=== PATIENT | female | born 1980 | race African-American/Black ===

== ENCOUNTER 2017-07-16 00:41 | Emergency (ER) | payer SELFPAY ==
[~2017-07-16 00:41] MED LIST: IBUP-1060 PO; LIDO20SO PO; NITR100C62 PO; PRED50TA PO; PROAIR HFA8.5 GM INH
[2017-07-16 00:58] VITALS: BP 217/105
[2017-07-16] MEDS ORDERED: NAPR-683 PO (01:02)
--- NOTE | 2017-07-16 01:03 | PHYS DOC ---
Past Medical History Past Medical History: Asthma, Hypertension Additional Past Medical Histor: svt Past Surgical History: Tonsillectomy, Tubal ligation, Other Additional Past Surgical Histo: Cardiac ablation 2001, CARDIAC CARDIOVERSION Alcohol Use: None Drug Use: None Adult General Chief Complaint Chief Complaint: WRIST PAIN HPI HPI Patient is a 37 year old female who presents with left wrist pain. She is temporarily working at [employer] for [employer] and noticed increased pain and swelling of her left wrist and base of her thumb from all the sorting. No fall or blunt injury. No fever. No redness or lesions. Review of Systems Review of Systems Constitutional: Denies fever or chills Musculoskeletal: POS joint pain Integument: Denies rash or skin lesions Neurologic: Denies headache, focal weakness or sensory changes All other systems were reviewed and found to be within normal limits, except as documented in this note. Allergies Allergies Allergies Coded Allergies Type Severity Reaction Last Updated Verified No Known Drug Allergies 09/06/15 No Physical Exam Physical Exam Constitutional: Well developed, well nourished, no acute distress, non-toxic appearance. Skin: Warm, dry, no erythema, no rash. Extremities: Left wrist: Slight swelling to hypothenar area and dorsum of left wrist at radial aspect. NVI distally. Painful extension of thumb. No redness; no warmth. Neurologic: Alert and oriented X 3, normal motor function, normal sensory function, no focal deficits noted. Course & Med Decision Making Course & Med Decision Making Patient has over use syndrome. Given referral to Ortho and cock up splint. Rx: Naprosyn. Note for light duty. She has hypertension BUT DIDN'T TAKE HER MEDS TODAY. She was instructed to take her blood pressure meds when she gets home. She is asymptomatic. I have spoken with the patient and/or caregivers. I have explained the patient' s condition, diagnosis and treatment plan based on the information available to me at this time. I have answered the patient's and/or caregiver's questions and addressed any concerns. The patient and/or caregivers have as good an understanding of the patient's diagnosis, condition and treatment plan as can be expected at this point. The patient's condition is stable and appropriate for discharge from the emergency department. The patient will pursue further outpatient evaluation with the primary care physician or other designated or consulting physician as outlined in the discharge instructions. The patient and/or caregivers are agreeable to this plan of care and follow-up instructions have been explained in detail. The patient and/or caregivers have received these instructions in written format and have expressed an understanding of the discharge instructions. The patient and/or caregivers are aware that any significant change in condition or worsening of symptoms should prompt an immediate return to this or the closest emergency department or a call to 911. [place] Disclaimer Dragon Disclaimer This electronic medical record was generated, in whole or in part, using a voice recognition dictation system. Departure Departure Impression: Primary Impression: Left wrist tendinitis Disposition: HOME, SELF-CARE Condition: STABLE Referrals: UNKNOWN PCP NAME (PCP) Patient Instructions: Wrist Sprain with [facility] Script[facility] Naproxen (NAPROSYN) 500 Mg Tablet 1 TAB PO BID, #30 TAB 1 Refill Prov: AILYN ALVARADO MD 07/16/17 AILYN ALVARADO MD Jul 16, 2017 01:03
== END 2017-07-16 01:11 | disposition home or self-care (01) ==
LOC: ER 00:41
DX: M77.9 Enthesopathy, unspecified (principal); J45.909 Unspecified asthma, uncomplicated; I10 Essential (primary) hypertension
CPT/HCPCS: 99282

== ENCOUNTER 2017-08-26 17:10 | Emergency (ER) | payer SELFPAY | END 2017-08-26 17:36 | disposition home or self-care (01) | LOC: ER 17:10 | DX: H65.192 Other acute nonsuppurative otitis media, left ear (principal); I10 Essential (primary) hypertension; J45.909 Unspecified asthma, uncomplicated; I47.1 Supraventricular tachycardia | CPT/HCPCS: 99283 ==

== ENCOUNTER 2018-02-11 01:58 | Inpatient (IN) | payer OTHER ==
[2018-02-11] MEDS: LABETALOL 20 MG/4 ML DISP.SYRIN. IVP (02:22)
[2018-02-11 02:56] LABS: ADD MAN DIFF? NO
[2018-02-11 02:58] LABS: BASO # 0.1 x10^3/uL (0.0-0.2); BASO % 1 % (0-3); EOS # 0.2 x10^3/uL (0.0-0.7); EOS % 2 % (0-3); HEMOGLOBIN 9.3 g/dL (12.0-15.5); LYMPH # 2.6 x10^3/uL (1.0-4.8); LYMPH % 27 % (24-48); MEAN CORPUSCULAR HEMOGLOBIN 17 pg (25-35); MEAN CORPUSCULAR HGB CONC 31 g/dL (31-37); MEAN CORPUSCULAR VOLUME 56 fL (79-100); MONO # 0.5 x10^3/uL (0.0-1.1); MONO % 5 % (0-9); NEUT # 6.3 x10^3uL (1.8-7.7); NEUT % 65 % (31-73); PLATELET COUNT 364 x10^3/uL (140-400); RED BLOOD COUNT 5.41 x10^6/uL (3.50-5.40); RED CELL DISTRIBUTION WIDTH 21.1 % (11.5-14.5); WHITE BLOOD COUNT 9.7 x10^3/uL (4.0-11.0)
[2018-02-11 03:19] LABS: NEG OBC SER NEG; POS OBC SER POS; PREG TEST PT QUAL NEGATIVE (NEG)
[2018-02-11 03:21] LABS: ANION GAP 12 (6-14); BLOOD UREA NITROGEN 10 mg/dL (7-20); BUN/CREATININE RATIO 7 (6-20); CALCIUM 9.5 mg/dL (8.5-10.1); CARBON DIOXIDE 27 mmol/L (21-32); CHLORIDE 101 mmol/L (98-107); CREATININE 1.4 mg/dL (0.6-1.0); GFR 51.2; GLUCOSE 137 mg/dL (70-99); POTASSIUM 3.6 mmol/L (3.5-5.1); SODIUM 140 mmol/L (136-145)
[2018-02-11 03:27] LABS: ALBUMIN 3.7 g/dL (3.4-5.0); ALBUMIN/GLOBULIN RATIO 0.8 (1.0-1.7); ALK PHOS 101 U/L (46-116); ALT (SGPT) 24 U/L (14-59); AST (SGOT) 21 U/L (15-37); TOTAL BILIRUBIN 0.2 mg/dL (0.2-1.0); TOTAL PROTEIN 8.2 g/dL (6.4-8.2)
[2018-02-11 03:31] LABS: D-DIMER 0.29 ug/mlFEU (0.00-0.50)
[2018-02-11 03:34] LABS: THYROID STIM HORMONE (TSH) 1.384 uIU/mL (0.358-3.74)
[2018-02-11 03:35] LABS: TROPONINI 0.071 ng/mL (0.000-0.055)
[2018-02-11] MEDS ORDERED: fentaNYL PF VIAL 100 MCG/2 ML VIAL IV (03:45)
[2018-02-11] MEDS ORDERED: ONDANSETRON PF 4 MG/2 ML VIAL. IV ×2 (03:45→09:15)
[2018-02-11] MEDS ORDERED: SODIUM CHLORIDE 0.9% IV (04:00)
[2018-02-11] MEDS: fentaNYL PF VIAL 100 MCG/2 ML VIAL IV (04:00)
[2018-02-11] MEDS ORDERED: LABETALOL IV (04:00)
[2018-02-11 05:10] LABS: PLT ESTIMATE ADEQUATE (ADEQUATE)
[2018-02-11 05:11] LABS: ANISOCYTOSIS MOD; HYPOCHROMIA MARKED; MICROCYTOSIS MARKED
[2018-02-11] MEDS ORDERED: ACETAMINOPHEN 325 MG TABLET. PO (09:15)
[2018-02-11] MEDS ORDERED: DOCUSATE SODIUM 100 MG CAPSULE. PO (09:15)
[2018-02-11] MEDS ORDERED: IBUPROFEN 800 MG TABLET. PO (09:15)
[2018-02-11] MEDS ORDERED: MORPHINE SULFATE 2 MG/ML DISP.SYRIN. IV (09:15)
[2018-02-11] MEDS ORDERED: traMADol 50 MG TABLET PO (09:15)
[2018-02-11] MEDS ORDERED: hydrALAZINE 20 MG/ML VIAL. IVP (09:15)
[2018-02-11] MEDS ORDERED: ALBUTEROL SULFATE 2.5 MG/3 ML NEBU. NEB (09:15)
[2018-02-11] MEDS ORDERED: LISINOPRIL 20 MG TABLET PO (10:00)
[2018-02-11] MEDS ORDERED: NON FORMULARY ITEM (Lisinopril/Hydrochlorothiazide (Lisinopril-Hctz 20-25 Mg Tab) 1 TAB) PO (10:00)
[2018-02-11] MEDS: BUDESONIDE 0.5 MG/2 ML NEBU. NEB (10:00)
[2018-02-11] MEDS: METOPROLOL TART IMMED RELEASE 25 MG TABLET. PO (10:14)
[2018-02-11] MEDS: hydroCHLOROthiazide 25 MG TABLET PO (10:14)
[2018-02-11] MEDS: PANTOPRAZOLE 40 MG TABLET.DR. PO (10:14)
[2018-02-11] MEDS ORDERED: CONTRAST GIVEN. MC (13:45)
[2018-02-11] MEDS: APIXABAN 5 MG TABLET. PO (14:00)
[2018-02-11] MEDS ORDERED: BECLOMETHASONE DIPROPIONATE 40 MCG IH (21:00)
== END 2018-02-11 16:42 | disposition home or self-care (01) | DRG 309 ==
LOC: ER 01:58 → 1 WEST ICU 02:17 → 2 SOUTH 07:50
DX: I48.91 Unspecified atrial fibrillation (principal); I24.8 Other forms of acute ischemic heart disease; N17.9 Acute kidney failure, unspecified; Z68.43 Body mass index [BMI] 50.0-59.9, adult; I47.1 Supraventricular tachycardia; N18.3 Chronic kidney disease, stage 3 (moderate); E28.2 Polycystic ovarian syndrome; J45.909 Unspecified asthma, uncomplicated; E66.01 Morbid (severe) obesity due to excess calories; I12.9 Hypertensive chronic kidney disease with stage 1 through stage 4 chronic kidney disease, or unspecified chronic kidney disease; Z83.3 Family history of diabetes mellitus; Z82.49 Family history of ischemic heart disease and other diseases of the circulatory system; Z98.51 Tubal ligation status
CPT/HCPCS: 36415; 71045; 80053; 84443; 84484; 84703; 85025; 85379; 93005; 93306; 96374; 99285; 99285-25; J3490